=== PATIENT | male | born 1995 | race African-American/Black ===

== ENCOUNTER 2019-07-11 16:42 | Emergency (ER) | payer BC, OTHER ==
[~2019-07-11] VITALS: Ht 177.8 cm; Wt 81.7 kg
[2019-07-11 17:22] LABS: ABSOLUTE NEUTROPHILS 3.1 thou/uL (1.4-8.2); BASOPHILS 0.7 % (0.0-2.0); EOSINOPHILS 1.1 % (0.0-3.0); HEMOGLOBIN 17.3 gm/dL (14.0-18.0); LYMPHOCYTES 31.8 % (24.0-44.0); MCH 29.6 pg (26.0-34.0); MCHC 35.3 g/dL (28.0-37.0); MCV 83.8 fL (80.0-100.0); MONOCYTES 11.7 % (1.0-8.0); PLATELET COUNT 193 thou/uL (150-400); POLYS 54.7 % (36.0-66.0); RBC 5.85 mil/uL (4.50-6.00); RDW 14.8 % (10.5-14.5); WBC 5.7 thou/uL (4.0-11.0)
[2019-07-11 17:30] LABS: ANION GAP 5 mmol/L (7-16); BUN 19 mg/dL (7-18); CALCIUM 9.2 mg/dL (8.5-10.1); CHLORIDE 99 mmol/L (98-107); CO2 30 mmol/L (21-32); CREATININE 1.3 mg/dL (0.7-1.3); GLUCOSE 78 mg/dL (74-106); POTASSIUM 4.4 mmol/L (3.5-5.1); SODIUM 134 mmol/L (136-145)
[2019-07-11 17:36] LABS: ALBUMIN 4.4 g/dL (3.4-5.0); SALICYLATE < 2.8 mg/dL (2.8-20.0); SGOT 31 U/L (15-37); SGPT 37 U/L (30-65); TOTAL BILIRUBIN 0.6 mg/dL (<0.1-1.0); TOTAL PROTEIN 7.8 g/dL (6.4-8.2)
[2019-07-11 17:47] LABS: URINE BILIRUBIN NEGATIVE (Negative); URINE BLOOD NEGATIVE (Negative); URINE CLARITY CLEAR; URINE COLOR YELLOW; URINE GLUCOSE-RANDOM* NEGATIVE (Negative); URINE KETONES NEGATIVE (Negative); URINE LEUKOCYTES-REFLEX 1+ (Negative); URINE NITRITE-REFLEX NEGATIVE (Negative); URINE PROTEIN (DIPSTICK) NEGATIVE (Negative); URINE SPECIFIC GRAVITY 1.015 (1.005-1.035); URINE UROBILINOGEN 0.2 E.U./dl (0.2-1.0)
[2019-07-11 17:55] LABS: CASTS None Seen /LPF (None Seen); SQUAMOUS 0-3 Few /LPF (0-3); URINE RBC None Seen /HPF (0-2); URINE WBC-REFLEX 0-5 Rare /HPF (0-5)
[2019-07-11 17:56] LABS: BACTERIA-REFLEX 1-9 Few /HPF (None Seen); CRYSTALS None Seen /LPF (None Seen)
[2019-07-11 18:02] LABS: AMP/METHAMP Negative (Negative); BARBITURATES Negative (Negative); BENZODIAZEPINES Negative (Negative); COCAINE Negative (Negative); METHADONE Negative (Negative); OPIATES Negative (Negative); PCP Negative (Negative)
[2019-07-11] MEDS ORDERED: ASPERCREME1 EACH TOP (19:54)
[2019-07-11 20:29] VITALS: BP 117/66
--- NOTE | 2019-07-12 08:01 | EKG ---
Formerly [facility] [place] [address] ELECTROCARDIOGRAM REPORT Name: SAMANTHA MARTINEZ Room #: [facility]P [facility]..#: [id number] Admission: 07/11/19 Attend Phys: Discharge: 07/11/19 Date of : [birth year] Report #: [id number] THIS REPORT FOR: cc: CJ - Ingrid family physician/PCP CJ - Ingrid family physician/PCP Luis Felipe Gifford MD [facility] THIS REPORT FOR: //name// Formerly [facility] ED Test Date: 2019-07-11 Test Time: 16:56:34 Pat Name: SAMANTHA MARTINEZ Department: Room: Gender: Milieu Counselor: : 1995 Requested By: Duarte Gaytan Order Number: [id number] MD: Luis Felipe Gifford Measurements Intervals [place] Rate: 67 P: 65 [place]: 190 QRS: 56 QRSD: 84 T: 34 QT: 389 QTc: 411 Interpretive Statements Sinus rhythm LVH by voltage ST elev, probable normal early repol pattern No previous ECG available for comparison Electronically Signed On 07-12-2019 7:59:46 CDT by Luis Felipe Gifford [email or web address] <ELECTRONICALLY SIGNED> By: Luis Felipe Gifford MD, FACC 07/12/19 [id number] Luis Felipe Gifford MD, [facility] /EPI
== END 2019-07-11 20:41 | disposition home or self-care (01) ==
LOC: ER 16:42
PROVIDERS: Physician Assistant
DX: R45.851 Suicidal ideations (principal); F41.9 Anxiety disorder, unspecified; M54.5 Low back pain